=== PATIENT | female | born 1990 | race Caucasian/White ===

== ENCOUNTER 2017-10-28 05:49 | Day surgery (SDC) | payer OTHER ==
[2017-10-27 15:32] VITALS: BMI 24.6
--- NOTE | 2017-10-27 17:05 | PREOPHP ---
DATE OF ADMISSION: 10/28/2017 REASON FOR ADMISSION: To be admitted tomorrow, 10/28/2017, for laparoscopic bilateral tubal ligatio n. HISTORY OF PRESENT ILLNESS: This is a 27-year-old female, 6, para 4, who has requested ster ilization on the basis of multiparity. The alternatives, the benefits from it, the risks and possib le complications as well as 1% failure rate of the procedure were discussed at great length in the o ffice. She was allowed to ask questions. All her questions were answered to her satisfaction, and she signed the appropriate surgical informed consents. PAST MEDICAL HISTORY: The patient denies any medical problems including cardiovascular disease, quita betes, renal disease, liver disease, thyroid disease, or neurological problems. ALLERGIES: SHE HAS NO KNOWN ALLERGIES. OBSTETRICAL HISTORY: She was 6 times, 4 of which ended in normal vaginal deliveries, and 2 were therapeutic abortions. REVIEW OF SYSTEMS: A 12-point review of systems is noncontributory. FAMILY HISTORY: Noncontributory. PHYSICAL EXAMINATION GENERAL: Well-developed and nourished, in no distress, alert and oriented x3. VITAL SIGNS: Height is 5 feet 4 inches and weight 148 pounds. BMI is 25. Vital signs show the tem perature to be 98, blood pressure 119/72, respirations 16 per minute, and pulse is 72 per minute and regular. HEENT: Within normal limits. Pupils are PERRLA. NECK: Supple. The thyroid is not palpable. There is no lymphadenopathy. BREASTS: Show no masses or lumps. LUNGS: Clear to percussion and auscultation. HEART: Normal sinus rhythm, without a murmur. ABDOMEN: Soft. There is no hepatosplenomegaly or hernias. PELVIC: Normal external genitalia. The vagina is normal. The cervix is normal without lesions. B imanual exam: The uterus is small, firm, in the midline. There are no adnexal masses. LOWER EXTREMITIES: Within normal limits. NEUROLOGIC: Examination is grossly normal. IMPRESSION: Multiparity. The patient desires sterilization. PLAN: She is to be operated on tomorrow 10/28/2017. Dictated By: DELANO MENDEZ/LORE Conf#: [id number] DID#: [id number]
[~2017-10-28] VITALS: Ht 162.6 cm; Wt 66.0 kg
[2017-10-28] VITALS (7 sets, daily range): BP systolic 97–143; BP diastolic 48–73; PULSE 64–108; RESP 12–26; Ht 162.6 cm; Wt 66.0 kg
[2017-10-28] MEDS ORDERED: BUPIVACAINE 0.5%/EPI (SDV) 30 ML INJ ONE (06:31)
[2017-10-28] MEDS ORDERED: LIDOCAINE 2% (SDV) 5 ML INJ ONE (06:35)
[2017-10-28] MEDS ORDERED: ROCURONIUM 50 MG INJ ONE (06:35)
[2017-10-28] MEDS ORDERED: PROPOFOL 20 ML ONE (06:35)
[2017-10-28] MEDS ORDERED: CEFAZOLIN 1 GM INJ ONE (06:36)
[2017-10-28] MEDS ORDERED: MIDAZOLAM 1 MG/ML 2 ML INJ ONE (06:36)
[2017-10-28] MEDS ORDERED: FENTAnyl 50 MCG/ML VIAL ONE (06:36)
[2017-10-28] MEDS ORDERED: GLYCOPYRROLATE 0.4 MG INJ ONE (07:00)
[2017-10-28] MEDS ORDERED: OXYCODONE/ACETAMINOPHEN (5/325) TAB PO PRN ×3 (07:30→09:00)
[2017-10-28] MEDS ORDERED: ONDANSETRON 4 MG INJ IV PRN ×2 (07:30→09:00)
[2017-10-28] MEDS ORDERED: METOCLOPRAMIDE 10 MG INJ IV PRN (07:30)
[2017-10-28] MEDS ORDERED: FENTAnyl 50 MCG/ML VIAL IV PRN ×3 (07:30)
[2017-10-28] MEDS ORDERED: MEPERIDINE 25 MG INJ IV PRN (07:30)
[2017-10-28] MEDS ORDERED: DIPHENHYDRAMINE 50 MG INJ IV PRN (07:30)
[2017-10-28] MEDS ORDERED: BUPIVACAINE 0.5% (SDV) 30 ML INJ INJ ONE (07:45)
[2017-10-28] MEDS ORDERED: ONDANSETRON 4 MG INJ ONE (07:49)
[2017-10-28] MEDS ORDERED: DEXAMETHASONE 4 MG/ML 1 ML INJ ONE (07:49)
--- NOTE | 2017-10-28 08:29 | SIPON ---
Date/Time of Note Date/Time of Note See dictated note DATE: 10/28/17 TIME: 08:27 Operative Report Preoperative Diagnosis Multiparity. Postoperative Diagnosis Same. Operation/Procedure Performed Laparoscopic BTL. 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
[2017-10-28] MEDS ORDERED: SUGAMMADEX SODIUM 200 MG/2 ML VIAL IV ONE (08:30)
--- NOTE | 2017-10-28 08:31 | PD.PPDC ---
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
[2017-10-28] MEDS ORDERED: LACTATED RINGER'S 1,000 ML IV SCH (08:32)
[2017-10-28] MEDS ORDERED: MIDAZOLAM 1 MG/ML 2 ML INJ IV PRN (09:00)
[2017-10-28] MEDS ORDERED: morphine 2 MG INJ IV PRN (09:00)
[2017-10-28] MEDS ORDERED: ACETAMINOPHEN 325 MG TAB PO PRN (09:00)
[2017-10-28] MEDS ORDERED: IBUPROFEN 600 MG TAB PO PRN (09:00)
--- NOTE | 2017-10-28 09:09 | OPR ---
DATE OF OPERATION: 10/28/2017 PREOPERATIVE DIAGNOSES: Multiparity, voluntary sterilization. POSTOPERATIVE DIAGNOSIS: Multiparity, voluntary sterilization. OPERATION PERFORMED: Laparoscopic bilateral tubal ligation. SURGEON: Delano Cisneros MD. ANESTHESIOLOGIST: Benji Field CRNA ANESTHESIA: General. ESTIMATED BLOOD LOSS: Negligible. COMPLICATIONS: None. SPECIMENS: None. PROCEDURE: Laparoscopic bilateral tubal ligation. PROCEDURE AND FINDINGS: With the patient under general anesthesia, laid on the table in the dorsal lithotomy position. Her vagina and perineum was prepped with Betadine and then the bladder was emptied with a red Molina catheter. Then, the abdomen was prepped with ChloraPrep and after 3 minutes draped in the usual sterile fashion for this procedure. A small 5 mm incision was done at the level of the umbilicus through which the Veress needle was inserted while we were tenting up the anterior abdominal wall. Once the tip of the needle was ascertained to be intraperitoneal with hanging drop of saline technique, it was then connected to the CO2 insufflator. Good pneumoperitoneum was obtained and the needle was then removed. A 5 mm trocar was passed in. Through this port, the 5 mm laparoscope with the endo-camera was inserted. The patient was placed in Trendelenburg position. A second port was installed in the midline under direct vision in the hypogastric area. Through this second port, a Kleppinger clamp was inserted and attached to the gyrus device at 35 pendleton of current. The right tube was identified, picked up in its mid portion and burned through and through for 1.5 cm. The same was done on the contralateral side. There was no bleeding, no complications. Pictures were taken for documentation. All the instruments and most of the CO2 was removed from the patient's abdomen. The incisions were infiltrated with 0.5% Marcaine with epinephrine, a total of 20 mL. They were closed with 4-0 Monocryl. Band-Aids were applied and the patient was taken to recovery room with all vital signs stable. EBL was negligible. Needle, sponge and instrument count at the end of the procedure was correct twice. Dictated By: DELANO MENDEZ/LORE Conf#: [id number] DID#: [id number] [facility] INSANEJodie
== END 2017-10-28 11:00 | disposition home or self-care (01) ==
LOC: SDS 05:49
PROVIDERS: ATTEND Specialist
DX: Z30.2 Encounter for sterilization (principal)
CPT/HCPCS: 58670; 84703; 86850; 86900; 86901; J0690; J1100; J1200; J2175; J2250; J2405; J3010; Z7512; Z7610